=== PATIENT | male | born 2000 | race Caucasian/White ===

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

== ENCOUNTER 2025-07-12 07:25 | Day surgery (SDC) | payer OTHER ==
[~2025-07-12 07:25] MED LIST changes: -Lactated Ringers 1,000 ML IV SCH
[2025-07-12] MEDS ORDERED: Midazolam 1 MG/ML 2 ML SDV IV ONE (07:26)
[2025-07-12] MEDS ORDERED: Propofol 200 MG/20 ML SDV IV ONE (07:26)
[2025-07-12] MEDS: Lactated Ringers 1,000 ML IV SCH (07:53)
== END 2025-07-12 10:02 | disposition home or self-care (01) ==
LOC: FB.SDS 07:25
PROVIDERS: ATTEND Surgery
DX: K59.09 Other constipation (principal); Q43.8 Other specified congenital malformations of intestine; R14.0 Abdominal distension (gaseous); Z79.899 Other long term (current) drug therapy
CPT/HCPCS: 00812; A9270-GY; J2003; J2250; J2704; J7120